=== PATIENT | male | born 1975 | race Hispanic/Latino ===

== ENCOUNTER 2025-10-09 02:45 | Emergency (ER) | payer SELFPAY ==
[2025-10-09] MEDS ORDERED: Ketorolac Tromethamine 30 MG (1 mL) VIAL ONE (04:11)
[2025-10-09] MEDS ORDERED: Dexamethasone 4 MG TAB ONE (04:11)
== END 2025-10-09 05:16 | disposition home or self-care (01) ==
LOC: CSHERS 02:45
DX: J20.9 Acute bronchitis, unspecified (principal)
CPT/HCPCS: 71045; 87081; 87428; 87430; 96372; J1885; J8540; Q0162